=== PATIENT | female | born 1975 | race American Indian/Alaskan Native ===

== ENCOUNTER → 2016-10-15 | Outpatient (CLI) | payer BC ==
[2016-10-15 07:53] LABS: HEMATOCRIT 43.6 % (37.0-47.0); HEMOGLOBIN 14.4 g/dL (12.0-16.0); MEAN CORPUSCULAR HEMOGLOBIN 29.1 PG (27-31); MEAN PLATELET VOLUME 9.8 FL (7.4-12.2); RDW COEFFICIENT OF VARIATION 13.1 % (11.5-14.5); RED BLOOD COUNT 4.94 10^6/uL (4.20-5.40); WHITE BLOOD COUNT 5.5 10^3/uL (4.8-10.8)
[2016-10-15 07:55] LABS: BILIRUBIN,URINE NEGATIVE (NEG); CLARITY,URINE CLEAR (CLEAR); GLUCOSE, URINE (UA) NEGATIVE (NEG); LEUKOCYTE ESTERASE ,URINE NEGATIVE (NEG); NITRATE,URINE NEGATIVE (NEG); OCCULT BLOOD,URINE NEGATIVE (NEG); PROTEIN,URINE NEGATIVE (NEG); URINE SAMPLE TYPE CLEAN CATCH URINE
[2016-10-15 08:26] LABS: ASPARTATE AMINO TRANSFERASE 13 IU/L (8-39); BILIRUBIN,TOTAL 0.6 mg/dL (0.3-1.2); BLOOD UREA NITROGEN 8 mg/dL (7-22); CALCIUM 9.5 mg/dL (8.7-10.7); CHLORIDE 110 meq/L (98-112); CREATININE 0.8 mg/dL (0.50-1.20); EST GLOMERULAR FILTRATION > 60 (>60 ml/min/1.73m(2)); GLUCOSE 89 mg/dL (78-110); POTASSIUM 4.1 meq/L (3.8-5.2); SODIUM 142 meq/L (135-145); TOTAL PROTEIN 6.7 g/dL (6.1-8.0)
[2016-10-15 08:53] LABS: FREE T4 (FREE THYROXINE) 1.36 ng/dL (0.93-1.71)
[2016-10-17 11:36] LABS: TTG AB IGA <1.2 U/mL (())
[2016-10-20 22:11] LABS: IGA, SERUM 130 mg/dL (61 - 356)
[2016-10-21 11:12] LABS: CELIAC DISEASE INTERPRETATION SEE COMMENTS (()); CELIAC GENE PAIRS PRESENT Equivocal (())
== END ==
LOC: LAB 07:33
PROVIDERS: ATTEND Internal Medicine
DX: E03.9 Hypothyroidism, unspecified (principal); E78.5 Hyperlipidemia, unspecified; E87.6 Hypokalemia; K58.1 Irritable bowel syndrome with constipation; K90.41 Non-celiac gluten sensitivity; K21.9 Gastro-esophageal reflux disease without esophagitis; Z72.0 Tobacco use
CPT/HCPCS: 36415; 80053; 81003; 82784; 83516; 84439; 84443; 85027; 86256; 86816

== ENCOUNTER → 2016-10-27 | Outpatient (CLI) | payer BC ==
[2016-10-29 06:46] LABS: TTG AB IGA <1.2 U/mL (())
[2016-10-30 14:06] LABS: IGA, SERUM 126 mg/dL (61 - 356)
== END ==
LOC: LAB 12:12
PROVIDERS: ATTEND Internal Medicine
DX: K58.1 Irritable bowel syndrome with constipation (principal); K90.41 Non-celiac gluten sensitivity; R94.6 Abnormal results of thyroid function studies
CPT/HCPCS: 36415; 82784; 83516; 84481; 86256; 86816

== ENCOUNTER → 2016-12-10 | Outpatient (CLI) | payer BC | LOC: MOB LAB 10:06 | PROVIDERS: ATTEND Physician Assistant | DX: N39.0 Urinary tract infection, site not specified (principal) | CPT/HCPCS: 87088 ==

== ENCOUNTER → 2017-01-02 | Outpatient (CLI) | payer BC | LOC: MOB LAB 11:32 | PROVIDERS: ATTEND Physician Assistant | DX: N39.0 Urinary tract infection, site not specified (principal) | CPT/HCPCS: 87088 ==

== ENCOUNTER → 2017-01-08 | Outpatient (CLI) | payer BC ==
[2017-01-08 12:15] LABS: BILIRUBIN,URINE NEGATIVE (NEG); CLARITY,URINE CLEAR (CLEAR); COLOR,URINE YELLOW; GLUCOSE, URINE (UA) NEGATIVE (NEG); NITRATE,URINE NEGATIVE (NEG); OCCULT BLOOD,URINE Trace-intact (NEG); PROTEIN,URINE NEGATIVE (NEG)
[2017-01-08 12:22] LABS: BACTERIA,URINE FEW; RBC,URINE 0-3 /hpf; SQUAMOUS EPITHELIAL CELL,UR FEW; WBC,URINE 0-3
== END ==
LOC: LAB 11:30
PROVIDERS: ATTEND Internal Medicine
DX: N30.00 Acute cystitis without hematuria (principal); R30.0 Dysuria; R10.84 Generalized abdominal pain
CPT/HCPCS: 81001; 87088

== ENCOUNTER → 2017-02-10 | Outpatient (CLI) | payer BC ==
[2017-02-10 17:00] LABS: FREE T4 (FREE THYROXINE) 1.43 ng/dL (0.93-1.71)
== END ==
LOC: LAB 15:58
PROVIDERS: ATTEND Obstetrics & Gynecology Gynecology
DX: E03.9 Hypothyroidism, unspecified (principal)
CPT/HCPCS: 36415; 84439; 84443

== ENCOUNTER 2017-04-05 06:30 | Day surgery (SDC) | payer BC ==
[~2017-04-05 06:30] MED LIST: LIDOCAINE W/ SODIUM BICARB 0.5 ML SYR ONE; Lactated Ringers 1,000 ML PRIMARY IV ONE; Sodium Chloride 0.9% 100 ML IV ONE
[2017-04-05] MEDS ORDERED: LIDOCAINE HCL 2 % 10 ML JELLY URO-JECT TOPICAL ONE (06:42)
[2017-04-05] MEDS ORDERED: BUPIVACAINE 0.25% W/ EPI - 10 ML VIAL ONE ×4 (06:43→08:19)
[2017-04-05 06:45] LABS: BILIRUBIN,URINE NEGATIVE (NEG); COLOR,URINE YELLOW; GLUCOSE, URINE (UA) NEGATIVE (NEG); NITRATE,URINE POSITIVE (NEG); OCCULT BLOOD,URINE MODERATE (NEG); PROTEIN,URINE NEGATIVE (NEG); UROBILINOGEN,URINE 0.2 EU/dL (0.2)
[2017-04-05 06:50] LABS: BACTERIA,URINE MANY; CLARITY,URINE SLIGHTLY CLOUDY (CLEAR); RBC,URINE 0 /hpf; SQUAMOUS EPITHELIAL CELL,UR MANY; URINE SAMPLE TYPE CLEAN CATCH URINE; URINE SPECIFIC GRAVITY - MAN 1.015
[2017-04-05 07:17] LABS: BILIRUBIN,URINE NEGATIVE (NEG); CLARITY,URINE CLEAR (CLEAR); COLOR,URINE YELLOW; GLUCOSE, URINE (UA) NEGATIVE (NEG); NITRATE,URINE POSITIVE (NEG); OCCULT BLOOD,URINE Trace-intact (NEG); PROTEIN,URINE NEGATIVE (NEG); UROBILINOGEN,URINE 0.2 EU/dL (0.2)
[2017-04-05 07:21] LABS: RBC,URINE 0 /hpf; SQUAMOUS EPITHELIAL CELL,UR RARE; URINE SAMPLE TYPE CATH SPECIMEN
[2017-04-05 07:22] LABS: HEMATOCRIT 41.2 % (37.0-47.0); HEMOGLOBIN 13.9 g/dL (12.0-16.0)
[2017-04-05 07:22] LABS: BACTERIA,URINE MANY
[2017-04-05] MEDS ORDERED: MIDAZOLAM 5 MG/1 ML ONE (07:35)
[2017-04-05] MEDS ORDERED: LIDOCAINE MPF 2% - 5 ML (20 MG/1 ML) ONE (07:35)
[2017-04-05] MEDS ORDERED: fentaNYL Inj 250 MCG/5 ML VIAL ONE (07:35)
[2017-04-05] MEDS ORDERED: ROCURONIUM 10 MG/1 ML - 5 ML VIAL IVP ONE ×2 (07:36→08:35)
[2017-04-05] MEDS ORDERED: DEXAMETHASONE SOD PHOSPHATE 4 MG/1 ML VIAL ONE (08:00)
[2017-04-05] MEDS ORDERED: ONDANSETRON 4 MG/2 ML VIAL ONE (08:00)
[2017-04-05] MEDS ORDERED: KETOROLAC 30 MG/1 ML VIAL ONE (08:00)
[2017-04-05] MEDS ORDERED: KETAMINE 100 MG/1 ML - 5 ML ONE (08:07)
[2017-04-05] MEDS ORDERED: Lactated Ringers 1,000 ML PRIMARY IV ONE ×2 (08:42→11:25)
[2017-04-05] MEDS ORDERED: HYDROmorphone 2 MG/1 ML ONE (08:42)
[2017-04-05] MEDS ORDERED: SUGAMMADEX SODIUM 200 MG/2 ML VIAL IV ONE (08:45)
[2017-04-05] MEDS ORDERED: Opium-Belladonna 30-16.2mg 1 EACH SUPP.RECT RECTAL ONE (08:45)
[2017-04-05] MEDS ORDERED: KETOROLAC 15 MG/1 ML VIAL IVP PRN (09:10)
[2017-04-05] MEDS ORDERED: NORMAL SALINE 10 ML SYRINGE FLUSH IVP PRN ×2 (09:10→09:34)
[2017-04-05] MEDS ORDERED: Ondansetron ODT Tab 8 MG TAB PO PRN (09:10)
[2017-04-05] MEDS ORDERED: IBUPROFEN 800 MG TABLET PO PRN (09:10)
--- NOTE | 2017-04-05 09:20 | OB.OP.NOTE ---
Operative Report Surgeon: Fabby [employer] Supervisor: Ananda Patel MD Anesthesia Type: General Anesthesia Provider: Sebastian Cisneros CRNA Surgery Date: 04/05/17 Preoperative Diagnosis: MMR/Dysmenorrhea/LAZARO Postoperative Diagnosis: Same Procedure: da [place] Hysterectomy/BSO/TVT-O/Cystoscopy Estimated Blood Loss (mL): 100 Fluids: 2000 ml Complications: None Findings at Surgery: Slightly enlarged, retroverted uterus. Normal ovaries. Normal left tube. Right tube absent. No visible evidence of bowel, bladder, or ureter injury. At cysto, both ureters ejected urine and the bladder was intact. Indications for the Procedure: MMR/Dysmenorrhea/LAZARO Description of Procedure: See dictated operative report. Plan: Routine post op care and discharge to home.
[2017-04-05] MEDS ORDERED: fentaNYL Inj 100 MCG/2 ML VIAL IVP PRN (09:34)
[2017-04-05] MEDS ORDERED: PROMETHAZINE 25 MG/1 ML VIAL IM PRN (09:34)
[2017-04-05] MEDS ORDERED: HYDROmorphone 2 MG/1 ML IVP PRN (09:34)
[2017-04-05] MEDS: oxyCODONE-ACETAMINOPHEN 5-325 TAB PO PRN ×2 (10:15→14:15)
[2017-04-05] MEDS ORDERED: oxyCODONE-ACETAMINOPHEN 5-325 TAB PO ONE ×2 (10:16→14:08)
[2017-04-05] MEDS ORDERED: Ondansetron ODT Tab 8 MG TAB PO ONE (11:07)
[2017-04-05 12:33] VITALS: RESP 14
[2017-04-05 15:15] VITALS: TEMP 98.2
[2017-04-05] MEDS ORDERED: DOCUSATE 100 MG CAPSULE PO SCH (21:00)
== END 2017-04-05 14:55 | disposition home or self-care (01) ==
LOC: SDSC 06:30
PROVIDERS: ATTEND Obstetrics & Gynecology
DX: N92.1 Excessive and frequent menstruation with irregular cycle (principal); N94.6 Dysmenorrhea, unspecified; N39.3 Stress incontinence (female) (male); N81.4 Uterovaginal prolapse, unspecified
CPT/HCPCS: 57288; 58552; 81001; 84703; 85014; 85018; J0694; J1100; J1170; J1885; J2001; J2250; J2405; J2704; J3010; Q0162; J7050; J7120